=== PATIENT | female | born 1995 | race African-American/Black ===

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

== ENCOUNTER 2023-09-21 23:46 | Emergency (ER) | payer MEDICAID ==
[~2023-09-21] VITALS: Ht 157.5 cm; Wt 110.0 kg
[~2023-09-21 23:46] MED LIST: ABIL5 PO; LITH150C PO
[2023-09-21 23:52] VITALS: TEMP 98.7; O2SAT 100
[2023-09-22 00:25] VITALS: BP 147/74; PULSE 86; RESP 16
[2023-09-22] MEDS: ACETAMINOPHEN 325MG TABLET PO ONE (00:55)
[2023-09-22] MEDS: SODIUM CHLORIDE 0.9% 1,000 ML IV ONE (00:55)
[2023-09-22 01:19] LABS: BASOPHILS % 0.3 % (0.0-2.0); EOSINOPHILS % 1.1 % (0.0-5.0); HEMATOCRIT. 31.6 % (36.0-48.0); HEMOGLOBIN. 10.6 g/dL (12.0-16.0); LYMPHOCYTES % 30.2 % (20.0-50.0); MEAN CORPUSCULAR HEMOGLOBIN 27.9 pg (28.0-32.0); MEAN CORPUSCULAR HGB CONC 33.6 g/dL (31.0-37.0); MEAN CORPUSCULAR VOLUME 82.9 fL (81.0-99.0); MONOCYTES % 8.8 % (2.0-8.0); NEUTROPHILS % 59.6 % (40.0-76.0); PLATELET 206 x1000/uL (130-400); RED CELL DISTRIBUTION WIDTH 14.9 % (11.6-14.6); WHITE BLOOD COUNT 5.8 x1000/uL (4.5-11.0)
[2023-09-22 01:34] LABS: CHLORIDE 105 mEq/L (98-107); POTASSIUM 3.5 mEq/L (3.5-5.1); SODIUM 135 mEq/L (136-145)
[2023-09-22 01:35] LABS: CALCIUM 9.4 mg/dL (8.7-10.4); CARBON DIOXIDE 21 mEq/L (21-32)
[2023-09-22 01:40] LABS: CREATININE 0.5 mg/dL (0.6-1.0); GLUCOSE 123 mg/dL (70-105); UREA NITROGEN BLOOD 8 mg/dL (9-23)
[2023-09-22 01:52] LABS: B-HCG QUANTITATIVE 21816 mIU/mL (<3)
== END 2023-09-22 03:43 | disposition left against medical advice (07) ==
LOC: ER 23:46
DX: O99.891 Other specified diseases and conditions complicating pregnancy (principal); J45.909 Unspecified asthma, uncomplicated; Z3A.15 15 weeks gestation of pregnancy; Z88.6 Allergy status to analgesic agent
CPT/HCPCS: 99284; 80048; 84702; 85025; 86850; 86900; 86901; 36415; 96360; J7030; Z7610